=== PATIENT | female | born 2000 | race Caucasian/White ===

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

== ENCOUNTER 2019-04-23 16:05 | Emergency (ER) | payer SELFPAY ==
[2019-04-23] MEDS ORDERED: Sulfamethoxazole/Trimethoprim 800-160 MG Tab PO ONE (16:06)
[2019-04-23 16:56] LABS: CHLORIDE,CL 103 mEq/L (98-106); SODIUM,NA 140 mEq/L (136-145)
[2019-04-23] MEDS ORDERED: Ketorolac 60 MG/2 ML SDV IM ONE (17:36)
[2019-04-23] MEDS ORDERED: Take Home: Sulfamethoxazole/Trimethoprim 800-160 MG Tab, 2 Tab Pack PO ONE (17:36)
--- NOTE | 2019-04-23 17:40 | EDM.PDOC ---
ED HPI GENERAL MEDICAL PROBLEM - General Chief Complaint: General Stated Complaint: LT SIDE HURTS/HARD TO BREATH Time Seen by Provider: 04/23/19 17:20 Source of Information: Reports: Patient History Limitations: Reports: No Limitations - History of Present Illness INITIAL COMMENTS - FREE TEXT/NARRATIVE: States that she has been having some numbness and tingling down the left arm and up into the left side of her neck. Neck is sore. Feels like there is swelling to the left side of neck. She denies any trauma, falls or lifting. Has not noted any weakness to the arm. "I don't feel good". Is requesting referral to someone to help her with anxiety. "I feel my heart pounding" hard at times. She feels that she is more anxious. Is having some relationship problems at the time. Denies any SOB at this time. Left side of chest hurts when she moves or takes a deep breathe. This started about the same time that the neck and arm started. Treatments [employer]: Reports: NSAIDS Generalized Pain Score (Numeric/FACES): 6 - Related Data Allergies Allergy/AdvReac Type Severity Reaction Status Date / Time No Known Allergies Allergy Verified 04/23/19 16:20 Home Meds: Home Meds . [No Known Home Meds] 05/11/17 [History] Past Medical History - Past Health History Medical/Surgical History: Denies Medical/Surgical History Social & Family History - Tobacco Use Tobacco Use Comment: reports she occasionally does Juuls - Caffeine Use Caffeine Use: Reports: Coffee, Energy Drinks - Alcohol Use Days Per Week of Alcohol Use: 3 Number of Drinks Per Day: 5 Total Drinks Per Week: 15 Date of Last Drink: 04/25/19 - Recreational Drug Use Recreational Drug Use: No ED ROS GENERAL - Review of Systems Review Of Systems: See Below Constitutional: Denies: Fever, Chills HEENT: Reports: No Symptoms Respiratory: Reports: No Symptoms Cardiovascular: Reports: Chest Pain GI/Abdominal: Reports: No Symptoms : Reports: No Symptoms Musculoskeletal: Reports: Neck Pain, Arm Pain Skin: Reports: No Symptoms Psychiatric: Reports: Anxiety ED EXAM, GENERAL - Physical Exam Exam: See Below Exam Limited By: No Limitations General Appearance: Alert, WD/WN, Mild Distress Ears: Normal External Exam, Normal Canal, Normal TMs Throat/Mouth: Normal Oropharynx, Normal Voice Head: Atraumatic, Normocephalic Neck: Normal Inspection, Supple, Tender Lateral (on the left side of neck. some swelling noted to the lateral muscles.) Respiratory/Chest: No Respiratory Distress, Lungs Clear, Normal Breath Sounds, Other (chest tender with palpation of the left lateral chest wall. No bruising noted.) Cardiovascular: Regular Rate, Rhythm, No Edema GI/Abdominal: Normal Bowel Sounds, Soft, Non-Tender Back Exam: Normal Inspection Extremities: Normal Inspection, Arm Pain (to the left arm. Pain does get worse with movement of the neck and rotation of neck to the right. No tenderness midline. Has some tenderness with palpation of the upper back.) Course - Vital Signs Last Recorded V/S: Last Vital Signs Temp 97.6 F 04/23/19 16:48 Pulse 83 04/23/19 16:48 Resp 16 04/23/19 16:48 BP 137/86 04/23/19 16:48 Pulse Ox 100 04/23/19 16:48 - Orders/Labs/Meds Orders: Active Orders 24 hr Category Date Time Status CXR [Chest 2V] [CR] Stat Exams 04/23/19 16:25 Taken Labs: Laboratory Tests 04/23/19 04/23/19 04/23/19 Range/Units 16:30 16:40 16:40 WBC 9.7 (5.0-10.0) 10^3/uL RBC 5.25 (4.00-5.50) 10^6/uL Hgb 10.7 L (12.0-16.0) g/dL Hct 36.3 L (37.0-47.0) % MCV 69.1 L (82.0-94.0) fL MCH 20.4 L (27.0-32.0) pg MCHC 29.5 L (33.0-38.0) g/dL RDW Coeff of Mohan 18.1 H (11.0-15.0) % Plt Count 320 (150-400) 10^3/uL Neut % (Auto) 73.0 (35-85) % Lymph % (Auto) 17.4 (10-55) % [place] % (Auto) 7.9 (0-16) % Eos % (Auto) 1.3 (0-5) % Baso % (Auto) 0.4 (0-3) % Neut # (Auto) 7.05 H (1.80-7.00) 10^3/uL Lymph # (Auto) 1.68 (1.00-4.80) 10^3/uL [place] # (Auto) 0.76 (0.00-0.80) 10^3/uL Eos # (Auto) 0.13 (0.00-0.45) 10^3/uL Baso # (Auto) 0.04 10^3/uL Sodium 140 (136-145) mEq/L Potassium 3.6 (3.5-5.0) mEq/L Chloride 103 (98-106) mEq/L Carbon Dioxide 24 (21-32) mmol/L BUN 8 (7-18) mg/dL Creatinine 0.7 (0.6-1.0) mg/dL Est Cr Clr Drug Dosing 109.78 mL/min Estimated GFR (MDRD) > 60 (>=60) mL/min Glucose 96 D (75-99) mg/dL Calcium 8.8 (8.4-10.1) mg/dL C-Reactive Protein < 0.2 L (0.2-0.8) mg/dL Urine Color Yellow (YELLOW) Urine Appearance Clear (CLEAR) Urine pH 7.5 (4.5-8.0) Ur Specific [place] 1.020 (1.003-1.020) Urine Protein Negative (NEGATIVE) mg/dL Urine Glucose (UA) Negative (NEGATIVE) mg/dL Urine Ketones Negative (NEGATIVE) mg/dL Urine Occult Blood Negative (NEGATIVE) Urine Nitrite Negative (NEGATIVE) Urine Bilirubin Negative (NEGATIVE) Urine Urobilinogen 0.2 (0.2-1.0) EU/dL Ur Leukocyte Esterase Small H (NEGATIVE) Urine RBC Not seen (0-5) /HPF Urine WBC 0-5 (0-5) /HPF Ur Epithelial Cells Moderate H (NOT SEEN) /HPF Amorphous Sediment Moderate H (NOT SEEN) /HPF Urine Bacteria Moderate H (NOT SEEN) /HPF Meds: Medications Discontinued Medications Generic Name Dose Route Start Last Admin Trade Name Freq PRN Reason Stop Dose Admin Ketorolac Tromethamine 60 mg 04/23/19 17:36 04/23/19 17:46 Toradol IM 04/23/19 17:37 60 mg ONETIME ONE Administration Orphenadrine Citrate 60 mg 04/23/19 17:45 04/23/19 17:43 Norflex IM 60 mg Q12H GABI Administration Trimethoprim/Sulfamethoxazole 1 packet 04/23/19 17:36 04/23/19 17:49 Take Home: Sulfameth/Trimet 800-160mg, 2 Pack PO 04/23/19 17:37 1 packet ONETIME ONE Administration Departure - Departure Time of Disposition: 17:45 Disposition: Home, Self-Care 01 Clinical Impression: Muscle spasms of neck, Costochondral chest pain, Anxiety UTI (urinary tract infection) Qualifiers: Urinary tract infection type: acute cystitis Hematuria presence: without hematuria Qualified Code(s): N30.00 - Acute cystitis without hematuria - Discharge Information *PRESCRIPTION DRUG MONITORING PROGRAM REVIEWED*: Not Applicable *COPY OF PRESCRIPTION DRUG MONITORING REPORT IN PATIENT HEIDI: Not Applicable Instructions: Costochondritis, [id number], Panic Attack, [id number], Urinary Tract Infection, Adult Forms: ED Department Discharge Additional Instructions: toradol twice a day until pain is gone. Take with food Norflex twice a day until gone Bactrim DS take twice a day for 3 days for bladder infection. Push fluids as much as possible Will call tomorrow with appt to see Marianela for anxiety will call tomorrow with appt for physical therapy heating pad to the left side of neck and chest for comfort - My Orders Last 24 Hours: My Active Orders 04/23/19 16:25 CXR [Chest 2V] [CR] Stat - Assessment/Plan Last 24 Hours: My Active Orders 04/23/19 16:25 CXR [Chest 2V] [CR] Stat
== END 2019-04-23 18:00 | disposition home or self-care (01) ==
LOC: CC.ED 16:05
DX: R07.1 Chest pain on breathing (principal); M62.838 Other muscle spasm; N30.00 Acute cystitis without hematuria
CPT/HCPCS: 36415; 71046; 80048; 81001; 85025; 86140; 96372; 99284; A9270; J1885; J2360

== ENCOUNTER 2019-05-09 23:20 | Emergency (ER) | payer SELFPAY ==
[2019-05-09] MEDS ORDERED: Amoxicillin/Clavulanate K 875-125 MG Tab PO ONE (23:21)
--- NOTE | 2019-05-09 23:34 | EDM.PDOC ---
ED HPI GENERAL MEDICAL PROBLEM - General Chief Complaint: ENT Problem Stated Complaint: sore throat, cold symptoms Time Seen by Provider: 05/09/19 23:20 Source of Information: Reports: Patient History Limitations: Reports: No Limitations - History of Present Illness INITIAL COMMENTS - FREE TEXT/NARRATIVE: in with c/o bilateral ear pain and runny nose/sinus pressure and sore throat x the past few days, no neck/back pain or stiffness, no cough, no abd pain, no nv , no rash, unsure of fever, has had chills Onset: Gradual Duration: Day(s): Location: Reports: Face, Other (ears and throat) Quality: Reports: Ache Severity: Moderate Improves with: Reports: None Worsens with: Reports: None Associated Symptoms: Reports: Fever/Chills. 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 Denies: Weakness HEENT: Reports: Ear Pain, Rhinitis, Sinus Problem, Throat Pain Respiratory: Reports: No Symptoms. Denies: Shortness of Breath, Wheezing, Pleuritic Chest Pain, Cough Cardiovascular: Reports: No Symptoms. Denies: Chest Pain Endocrine: Reports: No Symptoms GI/Abdominal: Reports: No Symptoms. Denies: Abdominal Pain, Nausea, Vomiting : Reports: No Symptoms Musculoskeletal: Reports: No Symptoms. Denies: Neck Pain, Back Pain Skin: Reports: No Symptoms. Denies: Rash, Erythema Neurological: Reports: No Symptoms. Denies: Dizziness, Headache Psychiatric: Reports: No Symptoms ED EXAM, ENT - Physical Exam Exam: See Below Exam Limited By: No Limitations General Appearance: Alert, WD/WN, No Apparent Distress Ears: Normal External Exam, Normal Canal, TM Bulging, TM Erythema Nose: Nasal Discharge, Injected Turbinates Mouth/Throat: Normal Inspection, Normal Lips, Normal Oropharynx Head: Atraumatic, Normocephalic Neck: Normal Inspection, Supple, Non-Tender, Full Range of Motion Respiratory/Chest: No Respiratory Distress, Lungs Clear, Normal Breath Sounds, Chest Non-Tender Cardiovascular: Normal Peripheral Pulses, Regular Rate, Rhythm GI/Abdominal: Soft, Non-Tender Back: Normal Inspection, Full Range of Motion Extremities: Normal Inspection, Normal Range of Motion, Non-Tender, Normal Capillary Refill Neurological: Alert, Oriented, Normal Cognition, Normal Gait, No Motor/Sensory Deficits Psychiatric: Normal Affect, Normal Mood Skin: Warm, Dry, Intact, Normal Color Course - Vital Signs Text/Narrative:: the pt was evaluated in the ED, I suspect the pt has sinusitis with bilateral OM , the pt does c/o sore throat, there is irritation over the sinus tracts without any swelling or exudate. Oly score is neg, will start pt on Augmentin 875mg po bid x 10 days, will have her f/u next week in the clinic and return to ER PRN Departure - Departure Time of Disposition: 23:29 Disposition: Home, Self-Care 01 Condition: Good Clinical Impression: Otitis media, Sinusitis - Discharge Information *PRESCRIPTION DRUG MONITORING PROGRAM REVIEWED*: Not Applicable *COPY OF PRESCRIPTION DRUG MONITORING REPORT IN PATIENT HEIDI: Not Applicable Prescriptions: Amoxicillin/Clavulanate K [Augmentin 875-125 MG] 1 tab PO BID 10 Days #20 tablet Instructions: Otitis Media, Adult, [id number], Sinusitis, Adult, [id number] Additional Instructions: increase fluids Augmentin 875mg 2 x a day for 10 days follow up with your family doctor this week \return to the ER as needed - Problem List & Annotations (1) Otitis media SNOMED Code(s): 69628437 Code(s): H66.90 - OTITIS MEDIA, UNSPECIFIED, UNSPECIFIED EAR Status: Acute Priority: Medium Current Visit: Yes Qualifiers: Otitis media type: unspecified Laterality: bilateral Qualified Code(s): H66.93 - Otitis media, unspecified, bilateral (2) Sinusitis SNOMED Code(s): 29922434 Code(s): J32.9 - CHRONIC SINUSITIS, UNSPECIFIED Status: Acute Priority: Medium Current Visit: Yes Qualifiers: Sinusitis location: maxillary Chronicity: unspecified Qualified Code(s): J32.0 - Chronic maxillary sinusitis - Problem List Review Problem List Initiated/Reviewed/Updated: Yes - Assessment/Plan Plan: as above
[2019-05-09] MEDS ORDERED: Take Home: Amoxicillin/Clavulanate K 875-125 MG Tab, 2 Tab Pack PO SCH (23:35)
[2019-05-09] MEDS ORDERED: Amoxicillin/Clavulanate K 875-125 MG Tab ONE (23:53)
== END 2019-05-09 23:50 | disposition home or self-care (01) ==
LOC: CC.ED 23:20
DX: H92.03 Otalgia, bilateral (principal); J02.9 Acute pharyngitis, unspecified; R09.89 Other specified symptoms and signs involving the circulatory and respiratory systems
CPT/HCPCS: 99282; A9270-GY

== ENCOUNTER 2021-11-11 20:47 | Emergency (ER) | payer BC, MEDICAID | END 2021-11-11 21:33 | disposition home or self-care (01) | LOC: CC.ED 20:47 | DX: F41.9 Anxiety disorder, unspecified (principal); U07.0 Vaping-related disorder; Z72.0 Tobacco use; Z20.822 Contact with and (suspected) exposure to COVID-19 | CPT/HCPCS: 99283; U0002 ==

== ENCOUNTER 2022-12-26 06:10 | Emergency (ER) | payer MEDICAID ==
[2022-12-26 06:38] LABS: BASOPHILS ABSOLUTE AUTO 0.06 10^3/uL (0.00-0.50); BASOPHILS PERCENT AUTO 1.1 % (0-1); EOSINOPHILS ABSOLUTE AUTO 0.11 10^3/uL (0.00-1.50); EOSINOPHILS PERCENT AUTO 2.1 % (0-6); HEMATOCRIT 38.2 % (37.0-47.0); HEMOGLOBIN 11.8 g/dL (12.0-16.0); IMMATURE GRAN ABSOLUTE AUTO 0.01 10^3/uL (0.00-0.49); IMMATURE GRAN PERCENT AUTO 0.2 % (0.0-4.9); LYMPHOCYTES ABSOLUTE AUTO 1.67 10^3/uL (0.60-5.00); LYMPHOCYTES PERCENT AUTO 31.5 % (24-44); MEAN CORPUSCULAR HEMOGLOBIN 22.5 pg (27.0-32.0); MEAN CORPUSCULAR HGB CONC 30.9 g/dL (32.0-36.0); MEAN CORPUSCULAR VOLUME 72.9 fL (83.0-97.0); MONOCYTES ABSOLUTE AUTO 0.25 10^3/uL (0.00-1.50); MONOCYTES PERCENT AUTO 4.7 % (0-10); NEUTROPHILS ABSOLUTE AUTO 3.21 x10^3/uL (1.80-8.00); NEUTROPHILS PERCENT AUTO 60.4 % (41-71); PLATELET COUNT,PLT 339 10^3/uL (150-400); RED BLOOD CELL COUNT 5.24 x10^6/uL (4.00-5.50); WHITE BLOOD CELL COUNT,WBC 5.3 10^3/uL (4.0-11.0)
[2022-12-26] MEDS: Albuterol/Ipratropium 3.0-0.5 MG/3 ML Neb Soln NEB ONE ×2 (06:43→07:01)
[2022-12-26 06:50] LABS: ALBUMIN 4.1 g/dL (3.4-5.0); BILIRUBIN TOTAL 0.2 mg/dL (0.0-1.0); CALCIUM 8.9 mg/dL (8.4-10.1); CREATININE 0.8 mg/dL (0.6-1.0); EST CRCL DRUG DOSING (CG) 97.57 mL/min; PROTEIN TOTAL,TP 8.1 g/dL (6.4-8.2)
== END 2022-12-26 07:19 | disposition home or self-care (01) ==
LOC: CC.ED 06:10
DX: J40 Bronchitis, not specified as acute or chronic (principal); J98.9 Respiratory disorder, unspecified; B97.89 Other viral agents as the cause of diseases classified elsewhere; Z72.0 Tobacco use; Z20.822 Contact with and (suspected) exposure to COVID-19
CPT/HCPCS: 36415; 71046; 80053; 85025; 87804; 94640; 99284; 99285; J7620-GY; U0002